=== PATIENT | female | born 1995 | race American Indian/Alaskan Native ===

== ENCOUNTER 2018-07-12 20:55 | Inpatient (IN) | payer MEDICAID ==
--- NOTE | 2018-07-13 01:31 | Ultrasound Report ---
FINAL REPORT PROCEDURE: US OB BPP WO NON-STRESS TECHNIQUE: Sonographic evaluation for breathing, movement, tone, and amniotic flui d volume was performed. CPT 77852 HISTORY: dm COMPARISON: No prior studies are available for comparison. FINDINGS: Amniotic fluid volume: Normal-score 2. At least one vertical pocket > 2 cm or more in vertical axi s. breathing: Normal-score 2. movement: Normal-score 2. tone: Normal. Score: 8 of 8. IMPRESSION: Normal biophysical profile.
--- NOTE | 2018-07-13 01:32 | Ultrasound Report ---
FINAL REPORT PROCEDURE: US OB LIMITED TECHNIQUE: Real-time limited sonographic examination was performed for evaluation of fluid volume an d position for each fetus with image documentation (1 or more fetuses). CPT 79045 HISTORY: dm, jamey COMPARISON: No prior studies are available for comparison. FINDINGS: There is a single fetus in a vertex presentation. 4 quadrant amniotic fluid volume 15.1 centimeter. F etal heart rate 127 beats per minute. No further measurements are obtained. IMPRESSION: There is a single fetus in a vertex presentation. Four quadrant amniotic fluid volume 15.1 centimeter.
[2018-07-13 04:01] LABS: Hematocrit 23.1 % (30.3-42.9); Hemoglobin 7.3 gm/dl (10.1-14.3); Mean Corpuscular HGB Conc 31 % (30-34); Platelet Count 401 K/mm3 (140-440); Red Blood Count 3.62 M/mm3 (3.65-5.03)
[2018-07-13 04:18] LABS: Mean Corpuscular Volume 64 fl (79-97)
[2018-07-13] MEDS ORDERED: BRETHINE SUB-Q PRN (06:14)
[2018-07-13] MEDS ORDERED: BRETHINE IVP PRN (06:14)
[2018-07-13] MEDS ORDERED: XYLOCAINE 2% INFILTRATI ONE (06:14)
[2018-07-13] MEDS ORDERED: MINERAL OIL PO PRN (06:14)
[2018-07-13] MEDS ORDERED: LACTATED RINGERS 1,000 ML IV SCH (06:16)
[2018-07-13] MEDS ORDERED: MAGNESIUM SULFATE 40GM/1000ML 40 GM/1,000 ML BAG IV ONE (06:44)
[2018-07-13] MEDS: PITOCin/NS 30 UNIT/500ML 30 UNITS/500 ML BAG IV SCH ×3 (06:58→09:31)
[2018-07-13] MEDS ORDERED: PITOCin/NS 20 UNIT/1000ML DRIP 20 UNITS/1,000 ML BAG IV SCH (07:00)
[2018-07-13] MEDS ORDERED: STADOL IV PRN (13:57)
[2018-07-13] MEDS ORDERED: ZOFRAN IV PRN ×2 (14:33→17:18)
--- NOTE | 2018-07-13 14:38 | History and Physical Report ---
History of Present Illness Date of examination: 07/13/18 Date of admission: 07/12/18 20:55 Chief complaint: IOL History of present illness: 23y/o @ 39+2 weeks is an induction for labor secondary to GDMA2 on metformin. The patient is a late transfer of care @ 37+6 weeks. course also complicated by asthma and anemia. Previous placental previa has resolved without evidence of vasa previa. Past History Past Medical History: other (gestational diabetes) Past Surgical History: no surgical history Social history: single - Obstetrical History Expected Date of Delivery: 07/18/18 Actual Gestation: 39 Week(s) 2 Day(s) : 1 Para: 0 Hx # Term Pregnancies: 0 Spontaneous Abortions: 0 Induced : 0 Number of Living Children: 0 Medications and Allergies Allergies Allergy/AdvReac Type Severity Reaction Status Date / Time No Known Allergies Allergy Verified 07/13/18 06:25 Home Medications Medication Instructions Recorded Confirmed Last Taken Type metFORMIN [Glucophage] 500 mg PO BID 07/13/18 07/13/18 07/12/18 07:00 History Active Meds: Active Medications Butorphanol Tartrate (Stadol) 2 mg IV Q2H PRN PRN Reason: Labor Pain Last Admin: 07/13/18 14:13 Dose: 2 mg Documented by: Ephedrine Sulfate (Ephedrine Sulfate) 10 mg IV Q2M PRN PRN Reason: Hypotension Lactated Ringer's (Lactated Ringers) 1,000 mls @ 125 mls/hr IV DIRECT LAUREN Last Admin: 07/13/18 06:57 Dose: 125 mls/hr Documented by: Oxytocin/Sodium Chloride (Pitocin/Ns 20 Unit/1000ml Drip) 20 units in 1,000 mls @ 125 mls/hr IV DIRECT LAUREN Oxytocin/Sodium Chloride (Pitocin/Ns 30 Unit/500ml) 30 units in 500 mls @ 2 mls/hr IV TITR LAUREN; Protocol Last Admin: 07/13/18 09:31 Dose: 8 ml/hr, 8 mls/hr Documented by: Mineral Oil (Mineral Oil) 30 ml PO QHS PRN PRN Reason: Constipation Terbutaline Sulfate (Brethine) 0.25 mg SUB-Q ONCE PRN PRN Reason: Hyperstimulation/Hypertonicity Terbutaline Sulfate (Brethine) 0.25 mg IVP ONCE PRN PRN Reason: Hyperstimulation/Hypertonicity Review of Systems All systems: negative Genitourinary: no leakage of fluid - Vital Signs Vital signs: Vital Signs Pulse Resp BP 87 18 112/72 07/13/18 03:05 07/13/18 03:05 07/13/18 03:05 Temp Pulse Resp BP Pulse Ox 98.6 F 86 18 113/71 99 07/13/18 11:58 07/13/18 12:00 07/13/18 11:58 07/13/18 11:59 07/13/18 12:00 - Physical Exam Breasts: Positive: deferred Cardiovascular: Regular rate Lungs: Positive: Clear to auscultation Abdomen: Positive: normal appearance Results Result Diagrams: 07/13/18 03:30 Abnormal lab results 07/13/18 07/13/18 Range/Units 03:30 05:46 RBC 3.62 L (3.65-5.03) M/mm3 Hgb 7.3 L (10.1-14.3) gm/dl Hct 23.1 L (30.3-42.9) % MCV 64 L (79-97) fl MCH 20 L (28-32) pg RDW 23.0 H (13.2-15.2) % POC Glucose 66 L (70-105) All other labs normal. Assessment and Plan - Patient Problems (1) Gestational diabetes Current Visit: Yes Status: Acute Plan to address problem: admit for induction of labor
--- NOTE | 2018-07-13 14:46 | Event Note ---
Date: 07/13/18 Amniotomy performed with clear fluid. Cervical exam 2cm. Pitocin @ 12mIU/min.
[2018-07-13] MEDS ORDERED: NARCAN 2 MG/2 ML IV PRN (16:10)
--- NOTE | 2018-07-13 16:11 | Anesthesia Day of Surgery ---
Anesthesia Day of Surgery - Day of Surgery Patient Examined: Yes Patient H&P Reviewed: Yes Patient is NPO: Yes Beta Blockers: No Cardiac Clearance: No Pulmonary Clearance: No Cristobal's Test: N/A
--- NOTE | 2018-07-13 16:13 | Anesthesia Consultation ---
Anesthesia Consult and Med Hx - Airway Anesthetic Teeth Evaluation: Good ROM Head & Neck: Adequate Mental/Hyoid Distance: Adequate Mallampati Class: Class I Intubation Access Assessment: Good - Pulmonary Exam CTA: Yes - Cardiac Exam Cardiac Exam: RRR - Pre-Operative Health Status ASA Pre-Surgery Classification: ASA2 - Pulmonary Hx Smoking: No Hx Asthma: Yes (inhaler used 6 yrs ago) Hx Respiratory Symptoms: Yes SOB: Yes - Cardiovascular System Hx Hypertension: No - Central Nervous System Hx Seizures: No Hx Psychiatric Problems: No - Endocrine Hx Renal Disease: No Hx Hypothyroidism: No Hx Hyperthyroidism: No - Hematic Hx Anemia: No Hx Sickle Cell Disease: No - Other Systems Hx Alcohol Use: No
[2018-07-13] MEDS ORDERED: fentaNYL-BUPIV 2 MCG/ML-0.125% 200 MCG/100 ML BAG EPIDURAL SCH (17:00)
[2018-07-13] MEDS ORDERED: DULCOLAX PR PRN (17:18)
[2018-07-13] MEDS ORDERED: LANSINOH TP PRN (17:18)
[2018-07-13] MEDS ORDERED: TYLENOL PO PRN (17:18)
[2018-07-13] MEDS ORDERED: BENADRYL PO PRN (17:18)
[2018-07-13] MEDS ORDERED: TUCKS PAD TP PRN (17:18)
[2018-07-13] MEDS ORDERED: PHENERGAN PO PRN (17:18)
[2018-07-13] MEDS ORDERED: MILK OF MAGNESIA PO PRN (17:18)
[2018-07-13] MEDS ORDERED: PHENERGAN PR PRN (17:18)
--- NOTE | 2018-07-13 17:18 | Procedure Note ---
OB Delivery Note - Delivery Date of Delivery: 07/13/18 Surgeon: LUIS SUGGS Estimated blood loss: other (150ml) - Vaginal Delivery presentation: vertex Delivery position: OA Intrapartum events: none Delivery augmentation: rupture of membranes, pitocin Delivery monitor: external FHT Route of delivery: Delivery placenta: spontaneous Delivery cord: 3 umbilical vessels Episiotomy: none Delivery laceration: 1st degree, vaginal side wall Anesthesia: none Delivery comments: The patient progressed to complete complete +2 and pushed to deliver a liveborn female with Apgars of 8 and 9 weight 8 lbs. 4 oz. After delivery of the head the shoulders delivered without difficulty. Cord was clamped and cut 2 and and was placed on the warmer. The placenta delivered spontaneously intact with a three-vessel cord. The patient sustained a small first-degree vaginal wall laceration that was left unrepaired. Estimated blood loss is 150 mL - Infant A at 1 minute: 8 at 5 minutes: 9 Infant Gender: Female (weight 8 lbs. 4 oz.)
[2018-07-13] MEDS ORDERED: SODIUM CHLORIDE FLUSH SYRINGE 10 ML IV NR (18:00)
[2018-07-13] MEDS: IBUPROFEN PO SCH (20:55)
[2018-07-13] MEDS: NORCO 5/325 PO PRN (20:56)
[2018-07-14 04:43] LABS: Hematocrit 20.6 % (30.3-42.9); Hemoglobin 6.2 gm/dl (10.1-14.3)
[2018-07-14] MEDS: IBUPROFEN PO SCH ×3 (05:29→21:54)
[2018-07-14] MEDS: FEOSOL PO SCH ×2 (10:40→21:54)
--- NOTE | 2018-07-14 12:40 | Progress Note ---
Assessment and Plan PPD 1 s/p . Doing well. Plan for discharge on tomorrow Subjective - Subjective Date of service: 07/14/18 Patient reports: appetite normal, voiding normally, pain well controlled [place]: doing well Objective - Vital Signs Latest vital signs: Vital Signs Temp Pulse Resp BP BP Pulse Ox 07/14/18 08:35 98.2 F 83 20 96/65 07/13/18 20:30 98.7 F 78 20 118/69 99 07/13/18 19:23 79 125/70 07/13/18 19:08 78 119/74 07/13/18 18:53 80 115/67 07/13/18 18:38 98 H 112/67 07/13/18 18:34 82 99 07/13/18 18:29 96 H 99 07/13/18 18:25 89 18 115/72 07/13/18 18:24 89 97 07/13/18 18:22 115/72 07/13/18 18:19 86 98 07/13/18 18:14 78 98 07/13/18 18:09 82 99 07/13/18 18:08 101 H 111/67 07/13/18 18:04 84 98 07/13/18 17:59 101 H 98 07/13/18 17:54 110 H 100 07/13/18 17:53 95 H 114/66 07/13/18 17:49 100 H 100 07/13/18 17:44 111 H 99 07/13/18 17:40 107 H 18 122/63 99 07/13/18 17:39 104 H 99 07/13/18 17:38 107 H 122/63 07/13/18 17:34 111 H 100 07/13/18 17:29 97 H 100 07/13/18 17:25 98.3 F 102 H 18 121/63 100 07/13/18 17:24 106 H 100 07/13/18 17:23 102 H 121/63 Intake and Output 07/13/18 07/14/18 07/14/18 22:59 06:59 14:59 Intake Total 320 Output Total 500 Balance -500 320 Intake: Oral 320 Output: Urine 500 Void 500 Other: Total, Intake Amount 320 Total, Output Amount 500 # Voids Void 1 Estimated Blood Loss 150 - Exam Breasts: Present: deferred Cardiovascular: Present: Regular rate, Normal S1, Normal S2 Lungs: Present: Clear to auscultation, Normal air movement Abdomen: Present: normal appearance, soft Uterus: Present: normal, firm, fundal height below umbilicus Extremities: Present: normal Deep Tendon Reflex Grade: Normal +2 - Labs Labs: Abnormal lab results 07/14/18 Range/Units 04:14 Hgb 6.2 L (10.1-14.3) gm/dl Hct 20.6 L (30.3-42.9) %
--- NOTE | 2018-07-14 12:43 | Discharge Summary ---
Providers - Providers Date of Admission: 07/12/18 20:55 Date of discharge: 07/15/18 Attending physician: LUIS SUGGS Primary care physician: LUIS SUGGS Hospitalization Reason for admission: induction of labor Delivery: complications: none Discharge diagnosis: IUP at term delivered baby: female Hospital course: unremarkable Condition at discharge: Good Disposition: DC-01 TO HOME OR SELFCARE Plan - Discharge Medications Prescriptions: HYDROcodone/APAP 5-325 [[place] 5-325 mg TAB] 2 each PO Q6H PRN #15 tablet PRN Reason: Pain, Moderate (4-6) Ibuprofen [Motrin 600 MG tab] 600 mg PO Q6H #30 tablet - Provider Discharge Summary Activity: routine, no sex for 6 weeks, no heavy lifting 4 weeks, no strenuous exercise Diet: routine Instructions: routine Additional instructions: [] Smoking cessation referral if applicable(refer to patient education folder for contact #) [] Refer to [facility]'s [facility] Booklet Call your doctor immediately for: * Fever > 100.5 * Heavy vaginal bleeding ( >1 pad per hour) * Severe persistent headache * Shortness of breath * Reddened, hot, painful area to leg or breast * Drainage or odor from incision. * Keep incision clean and dry at all times and follow doctor's instructions regarding bathing/showering - Follow up plan Follow up: LUIS SUGGS MD [Primary Care Provider] - 6 Weeks
[2018-07-15] MEDS: NORCO 5/325 PO PRN (02:41)
[2018-07-15] MEDS: IBUPROFEN PO SCH ×2 (03:20→06:09)
[2018-07-15] MEDS ORDERED: DERMOPLAST TP ONE (12:20)
[2018-07-15 13:50] VITALS: BP 123/85
== END 2018-07-15 12:45 | disposition home or self-care (01) | DRG 775 ==
LOC: LD 20:55 → OB 07-13 20:29
PROVIDERS: ADMIT Obstetrics & Gynecology; ATTEND Obstetrics & Gynecology
PROC: 10907ZC Drainage of Amniotic Fluid, Therapeutic from Products of Conception, Via Natural or Artificial Opening (ICD-10-PCS; 2018-07-12)
PROC: 10E0XZZ Delivery of Products of Conception, External Approach (ICD-10-PCS; principal; 2018-07-13)
DX: O24.425 Gestational diabetes mellitus in childbirth, controlled by oral hypoglycemic drugs (principal); Z37.0 Single live birth; Z3A.39 39 weeks gestation of pregnancy; J45.909 Unspecified asthma, uncomplicated; O99.52 Diseases of the respiratory system complicating childbirth; O70.0 First degree perineal laceration during delivery
CPT/HCPCS: 36415; 76815; 76819; 82962; 85014; 85018; 85027; 86592; 86850; 86900; 86901; G0378; J0595; J2590; J3475; J7120

== ENCOUNTER 2020-10-13 04:24 | Outpatient (CLI) | payer MEDICAID ==
[2020-10-13 05:10] VITALS: BP 106/56
--- NOTE | 2020-10-13 08:07 | Ultrasound Report ---
ULTRASOUND BIOPHYSICAL PROFILE Indication: wellbeing Comparison: None Findings: breathing movement = 2 Gross body movement = 2 tone = 2 Qualitative amniotic fluid volume = 2 Total biophysical score = 8/8 Presentation is cephalic. heart rate is 146 beats per minute. Impression: biophysical profile equals 8/8. Signer Name: Oliver Dyson MD Signed: 10/13/2020 8:02 AM Workstation Name: [id number]
== END 2020-10-13 08:13 | disposition home or self-care (01) ==
LOC: TRG 04:24 → APU 04:28 → TRG 08:13
PROVIDERS: ATTEND Obstetrics & Gynecology
DX: Z34.93 Encounter for supervision of normal pregnancy, unspecified, third trimester (principal); Z3A.37 37 weeks gestation of pregnancy
CPT/HCPCS: 59025; 76819; 82962

== ENCOUNTER 2020-10-17 01:41 | Inpatient (IN) | payer MEDICAID ==
[2020-10-17] MEDS ORDERED: LACTATED RINGERS 1,000 ML ONE ×2 (02:51→06:27)
[2020-10-17] MEDS ORDERED: LACTATED RINGERS 1,000 ML IV ONE ×2 (02:58→03:47)
--- NOTE | 2020-10-17 04:40 | Ultrasound Report ---
LIMITED OBSTETRICAL ULTRASOUND INDICATION: Term , amniotic fluid assessment COMPARISON: None recent FINDINGS: Term intrauterine is seen with fetus in a cephalic position. Anterior placenta is free of the internal cervical os. Cardiac activity was documented at 104 bpm. anatomical surve y was not performed and placenta is not fully assessed. Amniotic fluid volume is just within normal l imits with DION of 7.3 cm. BIOPHYSICAL PROFILE breathing movements: 2/2 movements: 2/2 posture and tone tone: 2/2 Qualitative amniotic fluid volume: 2/2 Total score: 8/8, within normal limits Signer Name: Sid Martinez MD Signed: 10/17/2020 4:35 AM Workstation Name: [id number]
[2020-10-17 05:06] LABS: Amphetamine Screen,Urine Negative; Benzodiazepines Screen,Urine Negative; Cannabinoid Screen,Urine Negative; Cocaine Screen,Urine Negative; Methadone Screen,Urine Negative; Opiate Screen,Urine Negative
[2020-10-17] MEDS ORDERED: METOCLOPRAMIDE 10 MG/2 ML INJ ONE (05:32)
[2020-10-17] MEDS ORDERED: BICITRA ORAL LIQD 30ML ONE (05:32)
[2020-10-17] MEDS ORDERED: FAMOTIDINE 20 MG/2 ML INJ IV ONE ×2 (05:33→06:02)
--- NOTE | 2020-10-17 05:56 | Anesthesia Consultation ---
Anesthesia Consult and Med Hx Date of service: 10/17/20 - Airway Anesthetic Teeth Evaluation: Good ROM Head & Neck: Adequate Mental/Hyoid Distance: Adequate Mallampati Class: Class II Intubation Access Assessment: Probably Good - Pulmonary Exam CTA: Yes - Cardiac Exam Cardiac Exam: RRR - Pre-Operative Health Status ASA Pre-Surgery Classification: ASA3 Proposed Anesthetic Plan: Spinal - Pulmonary Hx Smoking: No Hx Asthma: Yes - Cardiovascular System Hx Hypertension: No - Central Nervous System Hx Seizures: No Hx Psychiatric Problems: No - Endocrine Hx Renal Disease: No Hx Non-Insulin Dependent Diabetes: Yes Hx Hypothyroidism: No Hx Hyperthyroidism: No - Hematic Hx Anemia: No Hx Sickle Cell Disease: No - Other Systems Hx Alcohol Use: No Hx Obesity: Yes
--- NOTE | 2020-10-17 05:57 | Anesthesia Day of Surgery ---
Anesthesia Day of Surgery - Day of Surgery Patient Examined: Yes Patient H&P Reviewed: Yes Patient is NPO: Yes
[2020-10-17] MEDS ORDERED: BICITRA ORAL LIQD 30ML PO ONE (06:02)
[2020-10-17] MEDS ORDERED: METOCLOPRAMIDE 10 MG/2 ML INJ IV ONE (06:02)
[2020-10-17] MEDS ORDERED: BUPIVACAINE/PF (0.5%) 5 MG/1 ML 30 ML VIAL INFILTRATI ONE (06:06)
[2020-10-17] MEDS ORDERED: dexAMETHasone 20 MG/5 ML VIAL ONE (06:06)
[2020-10-17] MEDS ORDERED: KETOROLAC 30 MG/1 ML INJ ONE (06:06)
[2020-10-17] MEDS ORDERED: ONDANSETRON 4 MG/2 ML INJ ONE (06:06)
--- NOTE | 2020-10-17 06:11 | History and Physical Report ---
History of Present Illness Date of examination: 10/17/20 Date of admission: 10/18/2020 Chief complaint: I'm having contractions History of present illness: Pt is a 25 year old who presents to L&D with complaint of contractions at 38 weeks gestation with EDC 10/31/20. Upon entry into triage pt had nrfht with decelerations both late and variable. Despite iv hydration and oxygen ressussitation, decels only resolved for brief periods and seemed to worsen with contraction activity. Discussed this finding with patient and we have decided to proceed with for nrfht remote from delivery. Past History Past Medical History: no pertinent history, asthma, diabetes (gestational) Past Surgical History: no surgical history PAINTER SUPERVISOR History: fibroids Family/Genetic History: none Social history: - Obstetrical History Expected Date of Delivery: 10/31/20 Actual Gestation: 38 Week(s) 0 Day(s) : 2 Para: 1 Medications and Allergies Allergies Allergy/AdvReac Type Severity Reaction Status Date / Time No Known Allergies Allergy Verified 07/13/18 06:25 Home Medications Medication Instructions Recorded Confirmed Last Taken Type metFORMIN [Glucophage] 500 mg PO BID 07/13/18 07/13/18 07/12/18 07:00 History HYDROcodone/APAP 5-325 [[place] 2 each PO Q6H PRN #15 tablet 07/14/18 Unknown Rx 5-325 mg TAB] Ibuprofen [Motrin 600 MG tab] 600 mg PO Q6H #30 tablet 07/14/18 Unknown Rx Active Meds: Active Medications Citric Acid/Sodium Citrate (Bicitra Oral Liqd 30ml) 30 ml PO ONCE ONE Stop: 10/17/20 06:03 Famotidine (Famotidine 20 Mg/2 Ml Inj) 20 mg IV ONCE ONE Stop: 10/17/20 06:03 Lactated Ringer's (Lactated Ringers) 1,000 mls @ 2,250 mls/hr IV PREOP LAUREN Stop: 10/18/20 06:42 Oxytocin/Sodium Chloride (Pitocin/Ns 30 Unit/500ml) 30 units in 500 mls @ 0 mls/hr IV TITR LAUREN; Protocol Cefazolin Sodium (Ancef/Sterile Water 2 Gm/20 Ml) 2 gm in 20 mls @ 80 mls/hr IV PREOP NR; Protocol Metoclopramide HCl (Metoclopramide 10 Mg/2 Ml Inj) 10 mg IV ONCE ONE Stop: 10/17/20 06:03 Review of Systems All systems: negative Genitourinary: contractions - Vital Signs Vital signs: Vital Signs Pulse BP Pulse Ox 82 117/70 99 10/17/20 02:27 10/17/20 02:27 10/17/20 02:27 Temp Pulse Resp BP Pulse Ox 98.2 F 91 H 18 117/70 100 10/17/20 02:43 10/17/20 05:31 10/17/20 02:43 10/17/20 02:43 10/17/20 05:31 - Physical Exam Breasts: Cardiovascular: Regular rate, Normal S1, Normal S2 Lungs: Positive: Clear to auscultation, Normal air movement Abdomen: Positive: normal appearance, soft, normal bowel sounds. Negative: distention, tenderness Genitourinary (Female): Positive: normal external genitalia, normal perenium Vulva: both: normal Vagina: Positive: normal moisture. Negative: discharge Cervix: Negative: lesion, discharge Uterus: Positive: normal size, normal contour Adnexa: both: normal Anus/Rectum: Positive: normal perianal skin, heme negative. Negative: rectal mass, hemorrhoids Extremities: Deep Tendon Reflex Grade: Normal +2 - Obstetrical FHR: category 3 FHR comments: repetitive decelerations with and without contractions, prolonged periods of minimal variability Cervical Dilatation: 1 Cervical Effacement Percentage: 50 station: -2 Uterine Contraction Pattern: Irregular Uterine Tone Measurement Phase: Contraction Uterine Contraction Intensity: Moderate Results Result Diagrams: 10/17/20 06:00 All other labs normal. Assessment and Plan IUP at 38 weeks here with contractions and nonrfht and 6/8 bpp. Discussed with patient that fetus will likely not tolerate active labor. Discussed plan of care and patient agrees to proceed with urgent .
[2020-10-17] MEDS ORDERED: SODIUM CHLORIDE 0.9% 100 ML ONE (06:12)
[2020-10-17] MEDS ORDERED: PHENYLEPHRINE 10 MG/1 ML INJ SDV ONE (06:12)
[2020-10-17] MEDS ORDERED: LACTATED RINGERS 1,000 ML IV SCH (06:15)
[2020-10-17 06:23] LABS: Mean Corpuscular HGB Conc 29 % (30-34); Platelet Count 400 K/mm3 (140-440); Red Blood Count 4.18 M/mm3 (3.65-5.03)
[2020-10-17 06:28] LABS: Hemoglobin 7.2 gm/dl (10.1-14.3); Mean Corpuscular Volume 60 fl (79-97); Red Cell Distribution Width 26.1 % (13.2-15.2)
[2020-10-17] MEDS ORDERED: PHENYLEPHRINE/NS 1,000 MCG/10 ML SYRINGE (OR USE) IV ONE (06:31)
[2020-10-17] MEDS ORDERED: WATER FOR IRRIG STERILE 1,500 ML BOTTLE IR ONE (06:40)
[2020-10-17] MEDS ORDERED: SODIUM CHLORIDE 0.9% IRR 1,500 ML BOTTLE IR ONE (06:40)
--- NOTE | 2020-10-17 06:57 | Progress Note ---
Spinal Anesthesia Block - Spinal Anesthesia Block Start Time: 06:13 Stop Time: 06:15 Performed by:: FAISAL YEN Procedure: Sitting, sterile chlorahexadine 0.5% prep/drape, 1% lidocaine skin local, 25G spinal needle + introducer at L3-4, + CSF, - Heme, [1.9 ml 0.5% bupivacaine + 10 mcg dexmedetomidine] injected, drape removed, patient positioned supine with left uterine displacement, and spinal level verified to be adequate prior to surgery. Faisal SHEARER
[2020-10-17] MEDS ORDERED: OXYTOCIN DRIP 30 UNITS/500 ML BAG IV SCH ×2 (07:00→09:20)
[2020-10-17] MEDS ORDERED: ceFAZolin/Water 2 GM/20 ML 2 GM/20 ML SYRINGE IV NR (07:00)
[2020-10-17] MEDS ORDERED: OXYTOCIN 10 UNIT/1 ML INJ ONE (07:03)
[2020-10-17] MEDS ORDERED: HETASTARCH 6% 500 ML IV ONE (07:15)
[2020-10-17] MEDS ORDERED: ePHEDrine SULFATE 50 MG/1 ML INJ ONE (07:30)
--- NOTE | 2020-10-17 07:34 | Operative Report ---
Operative Report Operative Report: Preoperative diagnosis: Intrauterine at 38 weeks 2. Nonreassuring heart sounds about from delivery Postoperative diagnosis: Same Procedure: Primary low transverse section Surgeon: Dr. Raina Pastor EBL: 500 cc Urine output: 100 mL IV fluids: 1000 mL Findings: Viable male in the occiput posterior position, weight 6 lbs. 11 oz. 3035 g Apgars 8 and 9. Meconium fluid, fibroid uterus Specimens: None Complications: None Procedure: The patient was admitted to the OR with IV running and in place. She was properly identified as herself. She was given spinal anesthesia in the OR without difficulty. She was placed in the dorsal supine position with a leftward tilt. A Rodríguez catheter was inserted. She was then prepped and draped in the normal sterile fashion. An Allis test was used to confirm adequate anesthesia. Once confirmed, the incision was made with the scalpel and carried to the underlying fascia using the scalpel and the Bovie. The fascia was incised in the midline and incision was extended bilaterally using the curved Hunter scissors. The fascia was then dissected from the underlying rectus muscles in a series of sharp and blunt dissection using the Hunter scissors. Muscles were in the in the midline sharply using Metzenbaum scissors and the peritoneum was entered into bluntly using the surgeon's fingers. A bladder blade was then placed into the incision to protect the bladder. Following this the bladder flap was created. Hysterotomy incision was then made in the scalpel. Upon uterine entry, the amniotic sac was ruptured for clear fluid. The was then delivered without difficulty. His mouth and nose were suctioned on the field. The cord was clamped and cut and he was handed to the waiting NICU personnel. The uterus was then exteriorized and cleared of all clots and debris. The hysterotomy incision was then closed in a running locked fashion using 0 Vicryl. The abdomen was then copiously irrigated with warm normal saline. n. Following this the uterus was replaced into the abdominal cavity. At this point the muscles were reapproximated in the midline using individual sutures of 0 Vicryl. Following this the fascia was closed in a running fashion using 0 Vicryl. Tissue was then copiously irrigated. Retention sutures were placed in the subcutaneous fat tissue Skin was closed in a running fashion using 3-0 Monocryl. The sponge lap needle and instrument counts were correct 2. The patient tolerated the procedure well. She was taken to recovery in stable condition.
[2020-10-17] MEDS ORDERED: SODIUM CHLORIDE 0.9% 500 ML 500 ML IV NR ×2 (08:05→19:51)
[2020-10-17] MEDS ORDERED: SODIUM CHLORIDE 0.9% 500 ML 500 ML IV ONE ×2 (08:26→21:00)
[2020-10-17] MEDS ORDERED: NALOXONE 0.4 MG/1 ML INJ IV PRN (09:20)
[2020-10-17] MEDS ORDERED: D5W/LACTATED RINGERS 1,000 ML IV SCH (09:20)
[2020-10-17] MEDS ORDERED: MORPHINE 4 MG/1 ML INJ IV PRN (09:20)
[2020-10-17] MEDS ORDERED: FERROUS SULFATE 325 MG TAB PO SCH (09:20)
[2020-10-17] MEDS ORDERED: KETOROLAC 30 MG/1 ML INJ IV PRN (09:20)
[2020-10-17] MEDS ORDERED: ONDANSETRON 4 MG/2 ML INJ IV PRN (09:20)
[2020-10-17] MEDS ORDERED: PROMETHAZINE 25 MG RECT SUPP PR PRN (10:00)
[2020-10-17] MEDS ORDERED: WITCH HAZEL/ GLYCERIN PAD TP PRN (10:00)
[2020-10-17] MEDS ORDERED: LANOLIN/ZINC/DIMETHICONE (LANSINOH) 7 GM TP PRN (10:00)
[2020-10-17] MEDS: PRENATAL VIT27-FE FUMARATE-FOLIC ACID VIT TAB PO SCH (11:12)
[2020-10-17] MEDS: FERROUS SULFATE 325 MG TAB PO SCH (11:12)
[2020-10-17 11:54] LABS: Total Cells Counted 100
[2020-10-17 12:00] LABS: Anisocytosis 3+
[2020-10-17 12:01] LABS: Giant Platelets Rare; Hypochromasia 2+; Tear Drop Cells 1+
[2020-10-17 12:04] LABS: Platelet Estimate Consistent w Auto
[2020-10-17] MEDS ORDERED: ACETAMINOPHEN 325 MG TAB PO ONE (20:40)
[2020-10-17] MEDS: oxyCODONE /ACETAMINOPHEN 5-325MG TAB PO PRN (20:58)
[2020-10-17] MEDS ORDERED: SODIUM CHLORIDE 0.9% 100 ML IVPB IV SCH (21:00)
[2020-10-17] MEDS ORDERED: diphenhydrAMINE 50 MG CAP PO NR (21:00)
[2020-10-17 22:09] LABS: Hematocrit 17.8 % (30.3-42.9); Hemoglobin 5.2 gm/dl (10.1-14.3)
[2020-10-18] MEDS: oxyCODONE /ACETAMINOPHEN 5-325MG TAB PO PRN ×4 (03:43→21:05)
[2020-10-18] MEDS ORDERED: TETANUS,DIPH,PERTUSS(ACELL) VACCINE 0.5 ML SYRINGE IM ONE (07:35)
[2020-10-18 10:11] LABS: Hematocrit 22.9 % (30.3-42.9); Hemoglobin 7.1 gm/dl (10.1-14.3)
[2020-10-18] MEDS: FERROUS SULFATE 325 MG TAB PO SCH (10:31)
[2020-10-18] MEDS: IBUPROFEN 800 MG TAB PO PRN ×2 (10:31→18:27)
[2020-10-18] MEDS: PRENATAL VIT27-FE FUMARATE-FOLIC ACID VIT TAB PO SCH (10:31)
[2020-10-18] MEDS: SIMETHICONE 80 MG CHEW TAB PO PRN (10:31)
--- NOTE | 2020-10-18 11:47 | Post Anesthesia Evaluation ---
- Post Anesthesia Evaluation Patient Participated: Yes Airway Patent: Yes Stable Respiratory Function: Yes Nausea/Vomiting: No Temp > 96.8F: Yes Pain Manageable: Yes Adequeate Hydration: Yes Anesthesia Complications: No Block Receding Appropriately: Yes
--- NOTE | 2020-10-18 17:37 | Progress Note ---
Assessment and Plan POD 1 s/p ltcs. Doing well. Pt has not ambulated as yet. She denies any nausea or vomiting. Encourage ambulatio. Continue routine care Subjective - Subjective Date of service: 10/18/20 Interval history: Pt is a 25 year old who presents to L&D with complaint of contractions at 38 weeks gestation with EDC 10/31/20. Upon entry into triage pt had nrfht with decelerations both late and variable. Despite iv hydration and oxygen ressussitation, decels only resolved for brief periods and seemed to worsen with contraction activity. Discussed this finding with patient and we have decided to proceed with for nrfht remote from delivery. Patient reports: appetite normal, voiding normally, pain well controlled, ambulating normally : doing well Objective - Vital Signs Latest vital signs: Vital Signs Temp Pulse Resp BP Pulse Ox 10/18/20 15:51 18 10/18/20 10:31 18 10/18/20 08:00 18 10/18/20 03:43 18 10/17/20 20:58 18 10/17/20 17:20 98.1 F 80 18 98/56 97 Intake and Output 10/18/20 10/18/20 10/18/20 06:59 14:59 22:59 Intake Total 640 Output Total 1100 Balance -460 Intake: Oral 400 Intake, Free Water 240 Output: Urine 1100 Void 1100 Other: Total, Intake Amount 200 Total, Output Amount 300 - Exam Breasts: Present: deferred Cardiovascular: Present: Regular rate, Normal S1, Normal S2 Lungs: Present: Clear to auscultation, Normal air movement Abdomen: Present: normal appearance, soft, normal bowel sounds Vulva: both: normal Uterus: Present: normal, firm, fundal height below umbilicus Extremities: Present: normal Incision: Present: normal, dry, intact, dressed - Labs Labs: Abnormal lab results 10/17/20 10/18/20 10/18/20 Range/Units 21:22 00:12 09:47 Hgb 5.2 L* 7.1 L (10.1-14.3) gm/dl Hct 17.8 L* D 22.9 L (30.3-42.9) % Crossmatch See Detail
[2020-10-19] MEDS: oxyCODONE /ACETAMINOPHEN 5-325MG TAB PO PRN ×2 (01:20→05:18)
[2020-10-19] MEDS: IBUPROFEN 800 MG TAB PO PRN (08:22)
[2020-10-19] MEDS: SIMETHICONE 80 MG CHEW TAB PO PRN (08:22)
--- NOTE | 2020-10-19 08:37 | Progress Note ---
Assessment and Plan A: POD#2 s/p primary section at term Acute on chronic blood loss anemia Obesity P: Routine postop care Anticipate discharge tomorrow Subjective - Subjective Date of service: 10/19/20 Principal diagnosis: s/p primary at term, obesity, acute on chronic anemia Interval history: Pt feels well today. Ambulating without difficulty. Voiding. Decreasing lochia. Patient reports: appetite normal, voiding normally, pain well controlled, flatus, ambulating normally, no bowel movement : doing well Objective - Vital Signs Latest vital signs: Vital Signs Temp Pulse Resp BP 10/19/20 01:20 18 10/19/20 01:00 98.7 F 69 16 104/78 10/18/20 15:51 18 10/18/20 10:31 18 Intake and Output 10/18/20 10/19/20 10/19/20 22:59 06:59 14:59 Intake Total 240 Output Total 1300 Balance -1060 Intake: Intake, Free Water 240 Output: Urine 1300 Indwelling Catheter 400 Void 900 Other: Total, Output Amount 400 # Voids Indwelling Catheter 1 Void 1 1 - Exam Breasts: Present: deferred Abdomen: Present: soft (obese ), distention (mild ) Uterus: Present: fundal height below umbilicus Extremities: Present: edema (trace ) Incision: Present: intact - Labs Labs: Abnormal lab results 10/18/20 10/18/20 Range/Units 00:12 09:47 Hgb 7.1 L (10.1-14.3) gm/dl Hct 22.9 L (30.3-42.9) % Crossmatch See Detail
[2020-10-19] MEDS: FERROUS SULFATE 325 MG TAB PO SCH (10:27)
[2020-10-19] MEDS: MAGNESIUM HYDROXIDE (MOM) ORAL LIQD UDC PO SCH ×3 (10:27→20:02)
[2020-10-19] MEDS: PRENATAL VIT27-FE FUMARATE-FOLIC ACID VIT TAB PO SCH (10:27)
[2020-10-19] MEDS: IBUPROFEN 800 MG TAB PO SCH ×2 (14:35→20:02)
[2020-10-20] MEDS: oxyCODONE /ACETAMINOPHEN 5-325MG TAB PO PRN ×2 (02:42→10:40)
[2020-10-20] MEDS: IBUPROFEN 800 MG TAB PO SCH ×3 (03:00→14:31)
--- NOTE | 2020-10-20 07:48 | Progress Note ---
Assessment and Plan A: POD# 3 s/p Primary at term Obesity Acute on chronic Anemia P: Continue with routine care with discharge this morning. Subjective - Subjective Date of service: 10/20/20 Principal diagnosis: s/p primary at term, obesity, acute on chronic anemia Interval history: POD 3 s/p primary . Patient is feeling well, lochia decreasing, passing flatus, +BM and reporting no issues with urination or ambulation. Reporting adequate pain control. Patient reports: appetite normal, voiding normally, pain well controlled, flatus, bowel movement, ambulating normally : doing well Objective - Vital Signs Latest vital signs: Vital Signs Temp Pulse Resp BP Pulse Ox 10/19/20 23:52 98.2 F 77 20 102/56 99 10/19/20 16:32 97.6 F 85 18 117/74 98 10/19/20 08:56 97.9 F 80 18 109/67 97 Intake and Output 10/19/20 10/19/20 10/20/20 15:59 23:59 07:59 Intake Total 120 Balance 120 Intake: Oral 120 Other: Total, Intake Amount 120 # Voids Indwelling Catheter 1 1 Void 1 1 1 - Exam Uterus: Present: firm, fundal height below umbilicus
--- NOTE | 2020-10-20 07:49 | Discharge Summary ---
Providers - Providers Date of Admission: 10/17/20 01:45 Date of discharge: 10/20/20 Attending physician: KAILA JOSEPH Primary care physician: KAILA JOSEPH Hospitalization Reason for admission: section (NRFHT's), IUP at term Delivery: Procedure: section, primary low transverse Episiotomy: none Laceration: none Incision: normal, dry, intact Other procedures: none complications: none Discharge diagnosis: IUP at term delivered [place] baby: male Hospital course: Uncomplicated Condition at discharge: Good Disposition: [id number] TO HOME OR SELFCARE Plan - Discharge Medications Prescriptions: Docusate Sodium [Colace] 100 mg PO BID PRN #60 capsule PRN Reason: Constipation Ferrous Sulfate [Feosol 325 MG tab] 325 mg PO TID #90 tablet Ibuprofen [Motrin] 800 mg PO Q8HR PRN #30 tablet PRN Reason: Pain , Severe (7-10) oxyCODONE /ACETAMINOPHEN [Percocet 5/325] 1 tab PO Q6HR PRN #40 tablet PRN Reason: Pain - Provider Discharge Summary Activity: no sex for 6 weeks, no heavy lifting 4 weeks, no strenuous exercise, other Diet: routine Instructions: routine Additional instructions: [] Smoking cessation referral if applicable(refer to patient education folder for contact #) [] Refer to [facility] Booklet Call your doctor immediately for: * Fever > 100.5 * Heavy vaginal bleeding ( >1 pad per hour) * Severe persistent headache * Shortness of breath * Reddened, hot, painful area to leg or breast * Drainage or odor from incision. * Keep incision clean and dry at all times and follow doctor's instructions regarding bathing/showering Return to clinic in 2 weeks for incision check. - Follow up plan Follow up: KAILA JOSEPH MD [Primary Care Provider] - 14 Days
[2020-10-20] MEDS: FERROUS SULFATE 325 MG TAB PO SCH (09:03)
[2020-10-20] MEDS: PRENATAL VIT27-FE FUMARATE-FOLIC ACID VIT TAB PO SCH (09:03)
[2020-10-20 15:15] VITALS: BP 109/52
== END 2020-10-20 15:30 | disposition home or self-care (01) | DRG 765 ==
LOC: TRG 01:41 → APU 01:45 → TRG 07:13 → OB 08:54
PROVIDERS: ADMIT Obstetrics & Gynecology; ATTEND Obstetrics & Gynecology
PROC: 10D00Z1 Extraction of Products of Conception, Low, Open Approach (ICD-10-PCS; principal; 2020-10-17)
DX: O76 Abnormality in fetal heart rate and rhythm complicating labor and delivery (principal); D62 Acute posthemorrhagic anemia; O99.52 Diseases of the respiratory system complicating childbirth; O99.214 Obesity complicating childbirth; O24.429 Gestational diabetes mellitus in childbirth, unspecified control; J45.909 Unspecified asthma, uncomplicated; O99.03 Anemia complicating the puerperium; Z3A.38 38 weeks gestation of pregnancy; Z37.0 Single live birth; Z20.822 Contact with and (suspected) exposure to COVID-19
CPT/HCPCS: 36415; 59025; 76815; 76819; 80307; 85007; 85014; 85018; 85025; 86592; 86706; 86762; 86850; 86900; 86901; 86920; 87806; 88307; 99211; G0378; G0463; J1100; J1885; J2270; J2370; J2405; J2590; J2765; J3490; J7040; J7120; P9016; U0003